=== PATIENT | male | born 1960 | race Caucasian/White ===

== ENCOUNTER → 2019-08-04 | Outpatient (CLI) | payer OTHER ==
[~2019-08-04] MED LIST: KEFLEX500 MG PO; MELOXICAM7.5 MG PO; MUCINEX DM ER1 EAC1 PO; NOHOMEMEDICATIONS; NORCO 5-325 TA1 EACH PO; PROMETH-CODEIN 65 ML PO; ZOFRAN ODT4 MG PO
== END ==
LOC: LAB 09:48
PROVIDERS: ATTEND Family Medicine
DX: U07.1 COVID-19 (principal); R50.9 Fever, unspecified; R05 Cough; Z20.828 Contact with and (suspected) exposure to other viral communicable diseases

== ENCOUNTER 2019-08-08 21:04 | Emergency (ER) | payer BC, OTHER ==
[~2019-08-08] VITALS: Ht 165.1 cm; Wt 69.8 kg
[~2019-08-08 21:04] MED LIST changes: -MELOXICAM7.5 MG PO; -MUCINEX DM ER1 EAC1 PO; -PROMETH-CODEIN 65 ML PO; -ZOFRAN ODT4 MG PO
[2019-08-08 21:35] LABS: ABSOLUTE NEUTROPHILS 5.4 thou/uL (1.4-8.2); BASOPHILS 0.2 % (0.0-2.0); EOSINOPHILS 0.1 % (0.0-3.0); HEMATOCRIT 40.6 % (42.0-52.0); HEMOGLOBIN 14.1 gm/dL (14.0-18.0); LYMPHOCYTES 11.1 % (24.0-44.0); MCH 30.7 pg (26.0-34.0); MCHC 34.6 g/dL (28.0-37.0); MCV 88.6 fL (80.0-100.0); MONOCYTES 7.7 % (1.0-8.0); PLATELET COUNT 182 thou/uL (150-400); POLYS 80.9 % (36.0-66.0); RBC 4.59 mil/uL (4.50-6.00); RDW 12.5 % (10.5-14.5); WBC 6.7 thou/uL (4.0-11.0)
[2019-08-08 21:42] LABS: ANION GAP 6 mmol/L (7-16); BUN 18 mg/dL (7-18); CALCIUM 8.3 mg/dL (8.5-10.1); CHLORIDE 102 mmol/L (98-107); CO2 27 mmol/L (21-32); GLUCOSE 116 mg/dL (74-106); POTASSIUM 4.1 mmol/L (3.5-5.1); SODIUM 135 mmol/L (136-145)
[2019-08-08 21:51] LABS: TROPONIN-I <0.06 ng/mL (<0.06)
[2019-08-08] MEDS ORDERED: MELOXICAM7.5 MG PO (22:07)
[2019-08-09] MEDS ORDERED: MUCINEX DM ER1 EAC1 PO (00:47)
[2019-08-09] MEDS ORDERED: ZOFRAN ODT4 MG PO (00:47)
[2019-08-09] MEDS ORDERED: PROMETH-CODEIN 65 ML PO (00:47)
[2019-08-09 01:08] VITALS: BP 127/76
--- NOTE | 2019-08-09 07:54 | EKG ---
[facility] [place] [address] ELECTROCARDIOGRAM REPORT Name: BEATRIZ GRADY Room #: DEP [facility]..#: [id number] Admission: 08/08/19 Attend Phys: Discharge: 08/09/19 Date of : 58 Report #: [id number] THIS REPORT FOR: cc: Jennifer Sales MD, Nora P. MD Lundgren,Asher Albert MD [facility] ~ THIS REPORT FOR: //name// 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
== END 2019-08-09 01:11 | disposition home or self-care (01) ==
LOC: ER 21:04
PROVIDERS: Emergency Medicine
DX: U07.1 COVID-19 (principal); M19.90 Unspecified osteoarthritis, unspecified site; Z79.899 Other long term (current) drug therapy

== ENCOUNTER → 2019-08-24 | Outpatient (CLI) | payer BC, OTHER ==
[~2019-08-24] MED LIST changes: +MELOXICAM7.5 MG PO; +MUCINEX DM ER1 EAC1 PO; +PROMETH-CODEIN 65 ML PO; +ZOFRAN ODT4 MG PO
== END ==
LOC: LAB 14:17
PROVIDERS: ATTEND Family Medicine
DX: U07.1 COVID-19 (principal)

== ENCOUNTER → 2019-12-09 | Outpatient (CLI) | payer BC, OTHER | LOC: RAD 15:51 | PROVIDERS: ATTEND Family Medicine | DX: M25.512 Pain in left shoulder (principal) ==

== ENCOUNTER → 2019-12-15 | Outpatient (CLI) | payer BC, OTHER ==
[2019-12-15 13:58] LABS: CREATININE 1.2 mg/dL (0.7-1.3)
== END ==
LOC: CAT 12:41
PROVIDERS: ATTEND Family Medicine
DX: K44.9 Diaphragmatic hernia without obstruction or gangrene (principal); M25.512 Pain in left shoulder